=== PATIENT | male | born 1955 | race Hispanic/Latino ===

== ENCOUNTER 2018-09-30 08:11 | Day surgery (SDC) | payer BC ==
[2018-09-28 17:09] LABS: BASOPHILS % (AUTO) 0.4 % (0.0-5.0); EOSINOPHILS % (AUTO) 1.1 % (0.0-8.0); HEMATOCRIT 28.8 % (42-54); LYMPHOCYTES % (AUTO) 17.1 % (21.0-51.0); MEAN CORPUSCULAR HEMOGLOBIN 25.4 pg (27.0-33.0); MEAN CORPUSCULAR HGB CONC 31.9 g/dL (32.0-36.0); MEAN CORPUSCULAR VOLUME 79.4 fL (79-99); NEUTROPHILS % (AUTO) 75.4 % (40.0-77.0); PLATELET COUNT (AUTO) 473 K/uL (130-400); RED BLOOD CELL COUNT(AUTO) 3.63 MIL/uL (4.50-6.20); RED CELL DISTRIBUTION WIDTH 16.6 % (11.0-15.5); WHITE BLOOD COUNT (AUTO) 8.9 K/uL (4.8-10.8)
[2018-09-28 17:14] VITALS: BP 163/80
[2018-09-28 17:35] LABS: CREATININE 1.1 mg/dL (0.5-1.5); POTASSIUM 4.6 mmol/L (3.5-5.1)
[2018-09-30] VITALS (18 sets, daily range): BP systolic 142–157; BP diastolic 74–100
[~2018-09-30] VITALS: Ht 182.9 cm; Wt 97.1 kg
[~2018-09-30 08:11] MED LIST: CEFTRIAXONE SODIUM 1 GM IVP SCH
[2018-09-30] MEDS ORDERED: CEFTRIAXONE SODIUM 1 GM ONE (11:26)
[2018-09-30] MEDS ORDERED: SODIUM CHLORIDE 0.9% 1000ML 1,000 ML IV ONE (11:27)
[2018-09-30] MEDS ORDERED: METF500S7 PO (12:23)
[2018-09-30] MEDS ORDERED: TAMS-1 PO (12:24)
[2018-09-30] MEDS ORDERED: AMOX-429 PO (12:26)
[2018-09-30] MEDS ORDERED: MIDAZOLAM HCL 1 MG/ML 2ML VIAL ONE (12:37)
[2018-09-30] MEDS ORDERED: PROPOFOL 10 MG/ML 20ML VIAL IV ONE (12:37)
[2018-09-30] MEDS ORDERED: FENTANYL CITRATE PF 50 MCG/1 ML 2ML VIAL ONE ×2 (12:37→13:18)
[2018-09-30] MEDS ORDERED: EPHEDRINE SULFATE 50 MG/ML AMPULE ONE (12:49)
[2018-09-30] MEDS ORDERED: ROCURONIUM 10MG/1ML SYR 10 MG/ML ML ONE (13:12)
[2018-09-30] MEDS ORDERED: NEOSTIGMINE 5MG/5ML SYR IV ONE (13:14)
[2018-09-30] MEDS ORDERED: GLYCOPYRROLATE 1 MG/5 ML SYRINGE ONE (13:14)
[2018-09-30] MEDS ORDERED: PHENYLEPHRINE HCL 10 MG/ML 1ML VIAL IV ONE (13:59)
[2018-09-30] MEDS ORDERED: OPIUM/BELLADONNA ALKALOIDS 1 EACH SUPP.RECT RC ONE (14:00)
--- NOTE | 2018-09-30 15:20 | NUR ---
[facility] RECEIVED PT FROM PACU STAFF SONIA ESTRADA. PT AAOX3. 18 FR TODD DRAINING TO GRAVITY AT BEDSIDE WITH 400ML OF CLEAR YELLOW URINE. AT BEDSIDE.
[2018-09-30] MEDS ORDERED: PHENAZOPYRIDINE HCL 200 MG TABLET ONE (15:29)
--- NOTE | 2018-09-30 16:00 | NUR ---
PRESCRIPTION PYRIDIUM MISSING QUANTITY. CALLED OFFICE. DR. MENENDEZ WANTS PYRIDIUM TAKE 1 PILL TID #9. PRESCRIPTION CALLED IN TO [facility] IN [place] FOR TYLENOL#3 AND PYRIDIUM. VERBALIZED UNDERSTANDING.
--- NOTE | 2018-09-30 16:20 | NUR ---
[facility] INSTRUCTED ON CHANGING TODD BAG TO LEG BAG USING ASEPTIC TECHNIQUE. AND PT VERBALIZED UNDERSTANDING. NO OTHER QUESTIONS AT THIS TIME.
== END 2018-09-30 16:50 | disposition home or self-care (01) ==
LOC: DAH 08:11
PROVIDERS: ATTEND Urology
DX: N21.0 Calculus in bladder (principal); N40.1 Benign prostatic hyperplasia with lower urinary tract symptoms; R33.9 Retention of urine, unspecified; Z79.84 Long term (current) use of oral hypoglycemic drugs; Z79.899 Other long term (current) drug therapy; E11.9 Type 2 diabetes mellitus without complications; N35.919 Unspecified urethral stricture, male, unspecified site
CPT/HCPCS: 36415; 52317; 52648; 80048; 82948; 85025; 88305; A4315; A4354; A4358; A4510; A4600; J0696; J2250; J2370; J2704; J2710; J3010 ×2; J3490 ×2; J7030 ×2; J7120